=== PATIENT | female | born 1940 | race Caucasian/White ===

== ENCOUNTER → 2020-05-15 13:19 | Outpatient (BNVA) | payer MEDICARE, OTHER, SELFPAY | PROVIDERS: PCP Internal Medicine; Referring Provider Internal Medicine; Visit Provider Hospitalist | DX: J45.909 Unspecified asthma, uncomplicated (principal); R49.0 Dysphonia; Z79.899 Other long term (current) drug therapy | CPT/HCPCS: 99212 ==

== ENCOUNTER → 2020-09-11 08:56 | Outpatient (BNVA) | payer MEDICARE, OTHER, SELFPAY | PROVIDERS: PCP Internal Medicine; Visit Provider Hospitalist | DX: J45.40 Moderate persistent asthma, uncomplicated (principal); J30.9 Allergic rhinitis, unspecified; R49.0 Dysphonia; Z79.899 Other long term (current) drug therapy | CPT/HCPCS: 99212 ==

== ENCOUNTER → 2021-03-17 13:19 | Outpatient (BNVA) | payer MEDICARE, OTHER, SELFPAY | PROVIDERS: PCP Internal Medicine; Visit Provider Hospitalist | DX: J30.9 Allergic rhinitis, unspecified (principal); J45.40 Moderate persistent asthma, uncomplicated; R91.8 Other nonspecific abnormal finding of lung field; R49.0 Dysphonia | CPT/HCPCS: 99212 ==

== ENCOUNTER → 2021-10-02 13:31 | Outpatient (BNVA) | payer MEDICARE, OTHER, SELFPAY | PROVIDERS: PCP Internal Medicine; Visit Provider Hospitalist | DX: J30.9 Allergic rhinitis, unspecified (principal); J45.40 Moderate persistent asthma, uncomplicated; R91.8 Other nonspecific abnormal finding of lung field | CPT/HCPCS: 99212 ==

== ENCOUNTER 2022-04-26 14:05 | Outpatient (REF) | payer SELFPAY ==
--- NOTE | 2022-04-26 16:34 | MHC.AU.HAS ---
Hearing Aid Evaluation Date of Visit: 04/26/22 Historical Information:Description of Hearing: Moderate sensorineural hearing loss in the right ear; Moderate to moderately-severe sensorineural hearing loss in the left ear Current personal amplification information: Sonic ET60 MNR RITLandy (Right SN: [id number]; Left SN: [id number]) Summary: Current hearing aids using 85 dB receivers and open domes. Purchased in 2018. Melody reported significant difficulty hearing with current hearing aids especially in adverse listening environments. She noted particular difficulty at sikhism as well as at other social events. Discussed realistic expectations of hearing aids considering hearing loss and word discrimination ability. Discussed possibility of reprogramming current hearing aids to updated hearing test at the clinic where they were purchased; however, Melody opted to pursue new hearing aids with upgraded technology. Hearing Aid Prescription: Based on the individual?s shared listening needs, communication environments, dexterity, desire for connectivity, and personal preferences, the following prescription for amplification has been made: Right ear: Metal Can Inspector: [employer] Model: Audeo L90-RT Battery Size: Rechargeable Color: P6 - Silver Page Insurance Investigator: 2M Type of Dome: Small power dome Left ear: Left ear prescription to be same as Right Hearing Aid above: Metal Can Inspector: Phonak Model: Audeo L90-RT Battery Size: Rechargeable Color: P6 - Silver Page Insurance Investigator: 2M Type of Dome: Small power dome Plan of Care: Patient wishes to purchase hearing aids as prescribed Action Taken/Action Needed: Hearing Instrument Fitting to be scheduled when materials arrive Primary Diagnosis: H90.3 Bilateral Sensorineural Hearing Loss Signature: Provider: Jonathan Medellin, [facility]
== END 2022-04-26 14:06 | disposition home or self-care (01) ==
LOC: HO.HAP 14:05
PROVIDERS: Visit Provider Internal Medicine
DX: Z46.1 Encounter for fitting and adjustment of hearing aid (principal); H90.3 Sensorineural hearing loss, bilateral
CPT/HCPCS: 92590

== ENCOUNTER 2022-05-26 14:26 | Outpatient (REF) | payer SELFPAY ==
--- NOTE | 2022-05-26 16:01 | MHC.AU.HFA ---
Hearing Instrument Fitting- Adult- Binaural Date of Visit: 05/26/22 Hearing Instruments Dispensed: Right Ear: Vivek Arevaloeo L90-RT SN: [id number] Color: Silver Page Repair Warranty: 07/26/2025 Loss and Damage Warranty: 07/26/2025 Service Plan: OPTED OUT Battery Size: Rechargeable Hunting Sales Leader: 2M Type of Mold: Small power dome Type of Wax Guard: CeruShield Left Ear: Vivek Franko L90-RT SN: [id number] Color: Silver Page Repair Warranty: 07/26/2025 Loss and Damage Warranty: 07/26/2025 Service Plan: OPTED OUT Battery Size: Rechargeable Hunting Sales Leader: 2M Type of Mold: Small power dome Type of Wax Guard: CeruShield Summary of Fitting: Performed feedback franchise development manager and real-ear measurements. Per Melody, settings were too loud and not normal at real ear settings. Reprogrammed to initial fit settings and Melody reported improvement in sound quality. Discussed benefit of real ear settings and time to acclimate to new hearing aids; however, Melody preferred the initial fit settings for now. Reviewed care, use, and rechargeability including changing dome and wax guard, manually turning on/off, and volume control use. Melody would like to pair her hearing aids to her cell phone; however, she did not bring her cellphone to this appointment. Recommendations: A hearing instrument follow-up was scheduled. Need to pair hearing aids to cell phone at follow up appointment. Diagnosis Code(s): Primary Diagnosis: H90.3 Bilateral Sensorineural Hearing Loss Signature: Provider: Jonathan Medellin, [facility]
== END 2022-05-26 14:27 | disposition home or self-care (01) ==
LOC: HO.HAP 14:26
PROVIDERS: Visit Provider Internal Medicine
DX: Z46.1 Encounter for fitting and adjustment of hearing aid (principal); H90.3 Sensorineural hearing loss, bilateral
CPT/HCPCS: V5261; V5299

== ENCOUNTER 2022-06-04 13:52 | Outpatient (REF) | payer MEDICARE, OTHER, SELFPAY ==
--- NOTE | 2022-06-04 17:45 | PFT_ITS ---
Forced vital capacity 82%, FEV1 of 81%. FEV1/FVC ratio is 73. [id number] of 73% and MVV 69%. Post bronchodilator therapy, there is no significant change. Total lung capacity 77% and residual volume 77%. Diffusion capacity is 56%. CONCLUSION: There is evidence of mild restrictive pulmonary disorder. No obstructive airway disorder. No response to bronchodilator therapy. MD RONAL Dobbins/MODL / [phone]
== END 2022-06-04 13:53 | disposition home or self-care (01) ==
LOC: HO.RESP 13:52
PROVIDERS: PCP Internal Medicine; Visit Provider Hospitalist
DX: J45.40 Moderate persistent asthma, uncomplicated (principal); J44.9 Chronic obstructive pulmonary disease, unspecified
CPT/HCPCS: 94060; 94727; 94729; 99212

== ENCOUNTER 2022-06-07 10:11 | Outpatient (REF) | payer SELFPAY ==
--- NOTE | 2022-06-07 10:58 | MHC.AU.HA3 ---
Hearing Instrument Follow-Up- Binaural Date of Visit: 06/07/22 Right Ear: Jarrett, Model, Color, Serial Number: Vivek Rutherford L90-RT SN: [id number] Color: Silver Page Senior Reservations Agent Repair Warranty: 07/26/2025 Senior Reservations Agent Loss and Damage Warranty: 07/26/2025 [facility] rService Plan: OPTED OUT Battery Size: Rechargeable Crossing Gateman/Slim Tube: 2M with retention tail Earmold/Dome/CShell/SlimTip:Small power dome Type of Wax Guard: CeruShield Dispensed By: [facility] Date of Fittin05/26/2022 Left Ear: Jarrett, Model, Color, Serial Number: Vivek Rutherford L90-RT SN: [id number] Color: Silver Page Senior Reservations Agent Repair Warranty: 07/26/2025 Senior Reservations Agent Loss and Damage Warranty: 07/26/2025 [facility] Service Plan: OPTED OUT Battery Size: Rechargeable Crossing Gateman/Slim Tube: 2M with retention tail Earmold/Dome/CShell/SlimTip: Small power dome Type of Wax Guard: CeruShield Dispensed By: [facility] Date of Fittin05/26/2022 Follow-Up Summary: Melody reported overall she is doing well with the hearing aids. She noted particular improvement hearing the television as well as in the clarity of speech compared to her old hearing aids. She reported some difficulty when speakers were on her left side - discussed difference in word discrimination scores - as well as in the car - adjusted noise management settings in the [id number] program. She also reported that some times the overall volume is too loud/hollow. She reportedly turned down the volume often. Adjusted occlusion compensation to medium - noted improvement in office. Also discussed trade off between speech intelligibility and comfort and continued time needed to acclimate to new settings and acoustic coupling (previous hearing aids had open domes). Paired to phone and confirmed successful connection with phone call in office. Recommendations: An additional follow-up was scheduled to monitor progress. Please contact our clinic with any questions or concerns. Diagnosis Code(s): Primary Diagnosis: H90.3 Bilateral Sensorineural Hearing Loss Signature: Provider: Jonathan Medellin, [facility]
== END 2022-06-07 10:12 | disposition home or self-care (01) ==
LOC: HO.HAP 10:11
PROVIDERS: Visit Provider Internal Medicine
DX: Z13.89 Encounter for screening for other disorder (principal)

== ENCOUNTER 2022-06-22 13:24 | Outpatient (REF) | payer SELFPAY ==
--- NOTE | 2022-06-22 14:26 | MHC.AU.HA3 ---
Hearing Instrument Follow-Up- Binaural Date of Visit: 06/22/22 Right Ear: Jarrett, Model, Color, Serial Number: Vivek Rutherford L90-RT SN: [id number] Color: Silver Page Highway Design Engineer Repair Warranty: 07/26/2025 Highway Design Engineer Loss and Damage Warranty: 07/26/2025 [facility] Service Plan: OPTED OUT Battery Size: Rechargeable Financial Aid Coordinator/Slim Tube: 2M with retention tail Earmold/Dome/CShell/SlimTip:Small power dome Type of Wax Guard: CeruShield Dispensed By: [facility] Date of Fittin05/26/2022 Left Ear: Jarrett, Model, Color, Serial Number: Vivek Rutherford L90-RT SN: [id number] Color: Silver Page Highway Design Engineer Repair Warranty: 07/26/2025 Highway Design Engineer Loss and Damage Warranty: 07/26/2025 [facility] Service Plan: OPTED OUT Battery Size: Rechargeable Financial Aid Coordinator/Slim Tube: 2M with retention tail Earmold/Dome/CShell/SlimTip: Small power dome Type of Wax Guard: CeruShield Dispensed By: [facility] Date of Fittin05/26/2022 Follow-Up Summary: Melody is very satisfied with her new hearing aids reporting that they are 90-100% better than her old hearing aids. No programming adjustments made today. Provided paper copy of instruction manual. Melody reported still some difficulty on the telephone but overall great improvement. Advised using volume control on cellphone during phone calls. Also completed [employer] certification form at Melody's request for her to apply for R2integratedline phone. Discussed end of trial period - Melody confirmed purchase of hearing aids. She knows that future visits will incur lan-exo-zleavrn charge as she opted out of service agreement. Recommendations: Updated audiological evaluation and hearing aid maintenance in January 2023 - Melody will contact her primary care physician for an order for the test at that time. Please contact the clinic sooner if any questions or concerns arise. Diagnosis Code(s): Primary Diagnosis: H90.3 Bilateral Sensorineural Hearing Loss Signature: Provider: Jonathan Medellin, [facility]
== END 2022-06-22 13:25 | disposition home or self-care (01) ==
LOC: HO.HAP 13:24
PROVIDERS: Visit Provider Internal Medicine
DX: Z13.89 Encounter for screening for other disorder (principal)

== ENCOUNTER 2022-07-14 11:43 | Outpatient (REF) | payer SELFPAY ==
--- NOTE | 2022-07-14 15:36 | MHC.AU.HA3 ---
Hearing Instrument Follow-Up- Binaural Date of Visit: 07/14/22 Right Ear: Jarrett, Model, Color, Serial Number: Vivek Rutherford L90-RT SN: [id number] Color: Silver Page Financial Institution Branch Manager Repair Warranty: 07/26/2025 Financial Institution Branch Manager Loss and Damage Warranty: 07/26/2025 [facility] Service Plan: OPTED OUT Battery Size: Rechargeable Classification Inspector/Slim Tube: 2M with retention tail Earmold/Dome/CShell/SlimTip:Small power dome Type of Wax Guard: CeruShield Dispensed By: [facility] Date of Fittin05/26/2022 Left Ear: Jarrett, Model, Color, Serial Number: Vivek Rutherford L90-RT SN: [id number] Color: Silver Page Financial Institution Branch Manager Repair Warranty: 07/26/2025 Financial Institution Branch Manager Loss and Damage Warranty: 07/26/2025 [facility] Service Plan: OPTED OUT Battery Size: Rechargeable Classification Inspector/Slim Tube: 2M with retention tail Earmold/Dome/CShell/SlimTip: Small power dome Type of Wax Guard: CeruShield Dispensed By: [facility] Date of Fittin05/26/2022 Follow-Up Summary: Melody reported that the right hearing aid is not charging. The LED light is continuously red no matter how long the hearing aid stays in the submarine element coordinator and it will not turn on. Confirmed in office. No difference in left charging slot or with different submarine element coordinator. Programmed loaner. Sent right hearing aid to [facility] to be repaired. Recommendations: Patient will be contacted when materials have arrived. Recommendations (Other): Will need appointment when right hearing aid arrives to reconnect to left hearing aid and return loaner. Diagnosis Code(s): Primary Diagnosis: H90.3 Bilateral Sensorineural Hearing Loss Signature: Provider: Jonathan Medellin, [facility]
== END 2022-07-14 11:44 | disposition home or self-care (01) ==
LOC: HO.HAP 11:43
PROVIDERS: Visit Provider Internal Medicine
DX: Z13.89 Encounter for screening for other disorder (principal)

== ENCOUNTER 2022-07-27 13:07 | Outpatient (REF) | payer SELFPAY | END 2022-07-27 13:08 | disposition home or self-care (01) | LOC: HO.HAP 13:07 | PROVIDERS: Visit Provider Internal Medicine | DX: Z13.89 Encounter for screening for other disorder (principal) ==

== ENCOUNTER 2023-02-03 13:02 | Outpatient (AMB) | payer MEDICARE, OTHER, SELFPAY ==
[2023-02-03 13:09] VITALS: PULSE 88; O2SAT 96; BMI 29.2
--- NOTE | 2023-02-03 13:09 | A.OFFVIS_ITS ---
Intake Vital Signs 02/03/23 13:09 Height 5 ft 3 in Weight 165 lb BMI 29.2 Pulse 88 Pulse Source Pulse Oximeter Pulse Oximetry (%) 96 Oxygen Delivery Method Room Air Intake Visit Reasons: copd Produce Specialist Required: No Allergies montelukast [Singulair] Allergy (Severe, Verified 02/03/23 13:10) Rash and Red Hands Codeine Allergy (Severe, Uncoded 02/03/23 13:10) Stomach Pain Oxycodone Allergy (Severe, Uncoded 02/03/23 13:10) Stomach Upset HPI HPI Comments History of Present Illness Details The patient is a 82-year-old woman with a known history of breast cancer in addition to pulmonary nodules and lymphadenopathy and ongoing shortness of breath. She does have a CT scan of the chest scheduled of [facility] by her oncologist next week. On previous examinations she was noted to have some bronchospasms. She was initially placed on Trelegy and then Advair, but no significant improving her respiratory status. Then she was placed on Singulair but that gave her reaction. She was then switched over Zafirlukast tolerating that well. She does have some persistent dyspnea on exertion. She also feels some chest congestion coughing at times. She did have a CT scan of the chest done in March 2019 at [facility]. Her pulmonary nodules are stable. She does have a large hiatal hernia. It appears to be almost pressing on her heart. She is getting nausea symptoms. She does try to follow-up reflux diet to some degree. We talked about making sure she sleeps elevated. The patient at this point based on the significant symptoms and her large hiatal hernia in the fact that she has some crackles on examination she this time of the possibility of microaspiration and aspiration pneumonitis the patient should see a specialist for this. I will make a referral to [facility]. In the meantime the patient is without any other complaints. To also to note on the CT scan she had a 4 cm right thyroid lobe. She has had this evaluated the past. She needs to follow up with her primary care doctor or solidworks mechanical designer regarding this. 05/15/2020 the patient is here for pulmonary follow-up visit. Overall she is doing a little better. She states that she is tolerating the Symbicort. She is using 2 puffs in the morning. She is not using a spacer. She still complaining of some hoarseness. I had provide her with a spacer but she had not been using it. I did review educate her and also had our nurse educator about the use of a spacer to make sure she uses it correctly. Mom we also talked about potentially putting her in the lower dose of Symbicort if she still has hoarseness. In addition to that we talked about the reflux diet which she should be following based on the possibility of underlying pharyngeal laryngeal penetration and microaspiration. The patient will have an evaluation with ENT as well to further address the hoarseness, 09/11/2020 the patient is here for pulmonary follow-up visit. Overall the patient is doing better. The hoarseness is overall better. She is trying to use a spacer with Symbicort and also rinse and gargle after worse. She was evaluated by ENT and they did recommend speech pathology. Again her hoarseness has gotten a little better in the last few weeks. In addition to that she did have a CT scan of the chest back in May 2020 demonstrating stable pulmonary nodules. Her mediastinal lymph else are stable in size. She has slight increase in the perivascular lymph nodes in size. She is going to continue being monitor closely by her oncologist. In the office we did provide her with a peak flow. She did use the peak flow and she was able to get between 250-300 mL for her maximum. At this point she is going to decrease the Symbicort to 1 puff daily with a spacer. She is going to monitor her peak flow. If her peak flow drops then she is going to increase the Symbicort to 1 puff twice a day. She also has a rescue inhaler that she can use as needed. Will follow up in 6 months or sooner if she develops any concerning symptoms. 03/17/2021 the patient is here for a pulmonary follow-up visit. The patient overall is doing about the same. She continues uses Symbicort. Still having issues with hoarseness and also with cough. I did recommend she switch the Symbicort 2 with different inhaler, [place] that will decrease the adverse effects. Patient is willing to switch over since she is not feeling any better. Also it will help with hoarseness. She had been using the peak flow but stopped because he was not making any difference after using the Symbicort. Her peak flow still around 250-300 mL. She is following closely with her oncologist. Her last CT scan of the chest from May 2020 demonstrated stable pulmonary nodules but did have some increased perivascular lymph nodes primarily the abdomen. Now she will be undergoing an MRI. 10/02/2021 the patient is here for a pulmonary follow-up visit. Overall her breathing appears to be stable. She initially had issues with hoarseness. Now she is tolerating Breo. Denies any hoarseness or cough at this time. She did have a CT scan of the chest at [facility] which was personally by me. It appears that she has interval worsening of the size of the nodular densities. This is likely worsening metastatic breast cancer. The patient is following closely with Oncology. Recently she was taken off her hormonal therapy due to renal issues. She was recently placed a new 1. Therefore, she does have a repeat CT scan coming to readdress the pulmonary nodules with new hormonal treatment. Otherwise patient is without any other complaints. 06/04/2022 the patient is here for a pulmonary follow-up visit. The patient has been feeling well from a respiratory status. She continues to tolerate the Breo inhaler. The patient did have a CT scan of the chest and abdomen demonstrating interval improvement other ground-glass opacities suggesting the improvement of the pneumonitis. This is also clinically relevant because her respiratory status has improved as well. The patient also underwent pulmonary function studies demonstrating just a mild restrictive process. Otherwise normal PFTs. Her CT scan of the abdomen did demonstrate some progression of the bony Mets. She will be following up with her oncologist soon. 02/03/2023 the patient is here for pulmonary follow-up visit. Overall she is doing about the same. Still complaining of dyspnea on exertion mqbf-ue-awdbflto severity. Typically worse when going up a flight of stairs. She has been on the Breo. She is not sure if it has been working for her. She did follow-up with her oncologist regarding the worsening CT scan of the chest. She is scheduled to have a repeat CT scan next month. She continues on the hormonal therapy. Indeed she is aware she has metastatic breast cancer. The patient did go for brief walking oximetry. She was initially desaturating down to about 93% with activity and she was dyspneic. We did work on deep breathing exercises such as pursed lip breathing and the patient's pulse ox did improve to 96%. We talked about the importance of pulmonary rehabilitation. I gave her information about online program and also offer her in person pulmonary rehab. She lives in will bring him so she states that [facility] will work best. She will call back and let us know if she would rather do it in person. Otherwise will follow-up in 6-8 months. The patient has any issues prior to that she will call for earlier assessment. [facility] Medical History (Updated 06/06/22 @ 22:43 by Rohan Sykes MD) Asthma Chronic allergic rhinitis Hiatal hernia History of breast cancer Hoarseness Pulmonary nodules Social History (Updated 03/17/21 @ 13:33 by LISBETH Hathaway) Patient Tobacco Use Status: Never used Tobacco Review of Systems Const Denies night sweats ENT Denies change in voice, Denies hoarseness, Denies lip swelling, Denies mouth pain, Reports nasal congestion, Reports nasal discharge and Denies tongue swe lling Card Denies chest pain and Reports dyspnea on exertion Resp Denies cough and Reports dyspnea on exertion GI Denies abdominal pain Musc Denies no additional complaints Neuro Denies Neuro-related abnormal movements Psych Denies no additional complaints Elmo/Lymph Denies easy bleeding and Denies lymphadenopathy Aller/Immun Denies lip swelling and Denies tongue swelling Physical Exam Vital Signs: Last Vital Signs Pulse 88 02/03/23 13:09 Pulse Ox 96 02/03/23 13:09 Oxygen Delivery Method Room Air 02/03/23 13:09 BMI result Body Mass Index 29.2 Const General: alert Neck Neck: Yes normal visual inspection, Yes full ROM and Yes no lymphadenopathy Chest Chest palpation & inspection: normal inspection of the chest Resp Auscultation: diminished lung sounds Cardio Rate: regular rate Rhythm: regular rhythm Heart sounds: S1 normal heart sound present and S2 normal heart sound present GI Palpation (GI): Soft to palpation and nontender Auscultation: normal bowel sounds General: Yes no CVA tenderness Back/Spine/Pelvis Back: no CVA tenderness Skin General skin exam: rashes and/or lesions noted Assessment & Plan Assessment & Plan (1) Asthma: Code(s): J45.909 - Unspecified asthma, uncomplicated Qualifiers: Asthma complication type: uncomplicated Asthma persistence: persistent Asthma severity: moderate Qualified Code(s): J45.40 - Moderate persistent asthma, uncomplicated (2) Chronic allergic rhinitis: Code(s): J30.9 - Allergic rhinitis, unspecified (3) Pulmonary nodules: Comment: stable Code(s): R91.8 - Other nonspecific abnormal finding of lung field Plan continue Breo daily Continue Allergy therapy Will f/u with oncology F/U CT chest next month per Oncology start online pulmonary rehab, consider in person pulmonary rehab F/U 6-8 months Coding Level of Care Code Est Pt Level 4 (36802) Diagnoses Asthma J45.40 Asthma complication type: uncomplicated Asthma persistence: persistent Asthma severity: moderate Chronic allergic rhinitis J30.9 Pulmonary nodules R91.8 Time Spent (min) 20
== END 2023-02-03 13:37 | disposition home or self-care (01) ==
PROVIDERS: PCP Internal Medicine; Visit Provider Hospitalist
DX: J45.40 Moderate persistent asthma, uncomplicated (principal); J30.9 Allergic rhinitis, unspecified; R91.8 Other nonspecific abnormal finding of lung field
CPT/HCPCS: 99214

== ENCOUNTER → 2023-02-03 13:02 | Outpatient (BNVA) | payer MEDICARE, OTHER, SELFPAY | PROVIDERS: PCP Internal Medicine; Visit Provider Hospitalist | DX: J45.40 Moderate persistent asthma, uncomplicated (principal); J30.9 Allergic rhinitis, unspecified; R91.8 Other nonspecific abnormal finding of lung field; Z79.899 Other long term (current) drug therapy | CPT/HCPCS: 99212 ==

== ENCOUNTER 2023-09-15 13:44 | Outpatient (AMB) | payer MEDICARE, OTHER, SELFPAY ==
--- NOTE | 2023-09-15 13:49 | MHC.OFFVIS ---
Intake Vital Signs 09/15/23 13:51 Height 5 ft 3 in Weight 165 lb BMI 29.2 Pulse 90 Pulse Source Pulse Oximeter Pulse Oximetry (%) 95 Oxygen Delivery Method Room Air Intake Visit Reasons: COPD Assistant Toddler Teacher Required: No Allergies montelukast [Singulair] Allergy (Severe, Verified 09/15/23 13:52) Rash and Red Hands Codeine Allergy (Severe, Uncoded 09/15/23 13:52) Stomach Pain Oxycodone Allergy (Severe, Uncoded 09/15/23 13:52) Stomach Upset HPI HPI Comments History of Present Illness Details The patient is a 83-year-old woman with a known history of breast cancer in addition to pulmonary nodules and lymphadenopathy and ongoing shortness of breath. She does have a CT scan of the chest scheduled of [facility] by her oncologist next week. On previous examinations she was noted to have some bronchospasms. She was initially placed on Trelegy and then Advair, but no significant improving her respiratory status. Then she was placed on Singulair but that gave her reaction. She was then switched over Zafirlukast tolerating that well. She does have some persistent dyspnea on exertion. She also feels some chest congestion coughing at times. She did have a CT scan of the chest done in March 2019 at [facility]. Her pulmonary nodules are stable. She does have a large hiatal hernia. It appears to be almost pressing on her heart. She is getting nausea symptoms. She does try to follow-up reflux diet to some degree. We talked about making sure she sleeps elevated. The patient at this point based on the significant symptoms and her large hiatal hernia in the fact that she has some crackles on examination she this time of the possibility of microaspiration and aspiration pneumonitis the patient should see a specialist for this. I will make a referral to [facility] GI. In the meantime the patient is without any other complaints. To also to note on the CT scan she had a 4 cm right thyroid lobe. She has had this evaluated the past. She needs to follow up with her primary care doctor or studio data analyst regarding this. 05/15/2020 the patient is here for pulmonary follow-up visit. Overall she is doing a little better. She states that she is tolerating the Symbicort. She is using 2 puffs in the morning. She is not using a spacer. She still complaining of some hoarseness. I had provide her with a spacer but she had not been using it. I did review educate her and also had our nurse educator about the use of a spacer to make sure she uses it correctly. Mom we also talked about potentially putting her in the lower dose of Symbicort if she still has hoarseness. In addition to that we talked about the reflux diet which she should be following based on the possibility of underlying pharyngeal laryngeal penetration and microaspiration. The patient will have an evaluation with ENT as well to further address the hoarseness, 09/11/2020 the patient is here for pulmonary follow-up visit. Overall the patient is doing better. The hoarseness is overall better. She is trying to use a spacer with Symbicort and also rinse and gargle after worse. She was evaluated by ENT and they did recommend speech pathology. Again her hoarseness has gotten a little better in the last few weeks. In addition to that she did have a CT scan of the chest back in May 2020 demonstrating stable pulmonary nodules. Her mediastinal lymph else are stable in size. She has slight increase in the perivascular lymph nodes in size. She is going to continue being monitor closely by her oncologist. In the office we did provide her with a peak flow. She did use the peak flow and she was able to get between 250-300 mL for her maximum. At this point she is going to decrease the Symbicort to 1 puff daily with a spacer. She is going to monitor her peak flow. If her peak flow drops then she is going to increase the Symbicort to 1 puff twice a day. She also has a rescue inhaler that she can use as needed. Will follow up in 6 months or sooner if she develops any concerning symptoms. 03/17/2021 the patient is here for a pulmonary follow-up visit. The patient overall is doing about the same. She continues uses Symbicort. Still having issues with hoarseness and also with cough. I did recommend she switch the Symbicort 2 with different inhaler, Alvesco that will decrease the adverse effects. Patient is willing to switch over since she is not feeling any better. Also it will help with hoarseness. She had been using the peak flow but stopped because he was not making any difference after using the Symbicort. Her peak flow still around 250-300 mL. She is following closely with her oncologist. Her last CT scan of the chest from May 2020 demonstrated stable pulmonary nodules but did have some increased perivascular lymph nodes primarily the abdomen. Now she will be undergoing an MRI. 10/02/2021 the patient is here for a pulmonary follow-up visit. Overall her breathing appears to be stable. She initially had issues with hoarseness. Now she is tolerating Breo. Denies any hoarseness or cough at this time. She did have a CT scan of the chest at [facility] which was personally by me. It appears that she has interval worsening of the size of the nodular densities. This is likely worsening metastatic breast cancer. The patient is following closely with Oncology. Recently she was taken off her hormonal therapy due to renal issues. She was recently placed a new 1. Therefore, she does have a repeat CT scan coming to readdress the pulmonary nodules with new hormonal treatment. Otherwise patient is without any other complaints. 06/04/2022 the patient is here for a pulmonary follow-up visit. The patient has been feeling well from a respiratory status. She continues to tolerate the Breo inhaler. The patient did have a CT scan of the chest and abdomen demonstrating interval improvement other ground-glass opacities suggesting the improvement of the pneumonitis. This is also clinically relevant because her respiratory status has improved as well. The patient also underwent pulmonary function studies demonstrating just a mild restrictive process. Otherwise normal PFTs. Her CT scan of the abdomen did demonstrate some progression of the bony Mets. She will be following up with her oncologist soon. 02/03/2023 the patient is here for pulmonary follow-up visit. Overall she is doing about the same. Still complaining of dyspnea on exertion [id number] severity. Typically worse when going up a flight of stairs. She has been on the Breo. She is not sure if it has been working for her. She did follow-up with her oncologist regarding the worsening CT scan of the chest. She is scheduled to have a repeat CT scan next month. She continues on the hormonal therapy. Indeed she is aware she has metastatic breast cancer. The patient did go for brief walking oximetry. She was initially desaturating down to about 93% with activity and she was dyspneic. We did work on deep breathing exercises such as pursed lip breathing and the patient's pulse ox did improve to 96%. We talked about the importance of pulmonary rehabilitation. I gave her information about online program and also offer her in person pulmonary rehab. She lives in will bring him so she states that [facility] will work best. She will call back and let us know if she would rather do it in person. Otherwise will follow-up in 6-8 months. The patient has any issues prior to that she will call for earlier assessment. 09/15/2023 the patient is here for pulmonary follow-up visit. She has been following up closely with Oncology. 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 She did have a biopsy-proven lesion. In the meantime she does have some chest tightness and wheezing. [id number] severity. The Breo has been partially helpful. She does not use her rescue inhaler. Although she has 1 available. Will go ahead and maximize her respiratory therapy switching over to Trelegy. [facility] Medical History (Updated 06/06/22 @ 22:43 by Rohan Sykes MD) Hiatal hernia History of breast cancer Pulmonary nodules Chronic allergic rhinitis Hoarseness Asthma Social History (Updated 03/17/21 @ 13:33 by LISBETH Hathaway) Patient Tobacco Use Status: Never used Tobacco Review of Systems Const Denies night sweats ENT Denies change in voice, Denies hoarseness, Denies lip swelling, Denies mouth pain, Reports nasal congestion, Reports nasal discharge and Denies tongue swelling Card Denies chest pain and Reports dyspnea on exertion Resp Denies cough and Reports dyspnea on exertion GI Denies abdominal pain Musc Denies no additional complaints Neuro Denies Neuro-related abnormal movements Psych Denies no additional complaints Elmo/Lymph Denies easy bleeding and Denies lymphadenopathy Aller/Immun Denies lip swelling and Denies tongue swelling Physical Exam Vital Signs: Last Vital Signs Pulse 90 09/15/23 13:51 Pulse Ox 95 09/15/23 13:51 Oxygen Delivery Method Room Air 09/15/23 13:51 BMI result Body Mass Index 29.2 Const General: alert Neck Neck: Yes normal visual inspection, Yes full ROM and Yes no lymphadenopathy Chest Chest palpation & inspection: normal inspection of the chest Resp Effort & Inspection: prolonged expiratory phase Auscultation: wheezes and diminished lung sounds Cardio Rate: regular rate Rhythm: regular rhythm Heart sounds: S1 normal heart sound present and S2 normal heart sound present GI Palpation (GI): Soft to palpation and nontender Auscultation: normal bowel sounds General: Yes no CVA tenderness Back/Spine/Pelvis Back: no CVA tenderness Skin General skin exam: rashes and/or lesions noted Assessment & Plan Assessment & Plan (1) Asthma: Code(s): J45.909 - Unspecified asthma, uncomplicated Qualifiers: Asthma complication type: uncomplicated Asthma persistence: persistent Asthma severity: moderate Qualified Code(s): J45.40 - Moderate persistent asthma, uncomplicated (2) Chronic allergic rhinitis: Code(s): J30.9 - Allergic rhinitis, unspecified (3) Pulmonary nodules: Comment: stable Code(s): R91.8 - Other nonspecific abnormal finding of lung field Plan stop Breo daily start Trelegy daily Continue Allergy therapy Will f/u with oncology and radiation oncology F/U 6 months Medications: New yodtqeiaasn-hoklqylzj-gqeifgfu 200-62.5-25 mcg (Trelegy Ellipta) 1 inh inhalation DAILY 30 days 60 ea 12RF Coding Level of Care Code Est Pt Level 4 (15192) Diagnoses Moderate persistent asthma without complication J45.40 Asthma complication type: uncomplicated Asthma persistence: persistent Asthma severity: moderate Chronic allergic rhinitis J30.9 Pulmonary nodules R91.8 Time Spent (min) 18
[2023-09-15 13:51] VITALS: PULSE 90; O2SAT 95; BMI 29.2
== END 2023-09-15 14:09 | disposition home or self-care (01) ==
PROVIDERS: PCP Internal Medicine; Visit Provider Hospitalist
DX: J45.40 Moderate persistent asthma, uncomplicated (principal); J30.9 Allergic rhinitis, unspecified; R91.8 Other nonspecific abnormal finding of lung field
CPT/HCPCS: 99214

== ENCOUNTER → 2023-09-15 13:44 | Outpatient (BNVA) | payer MEDICARE, OTHER, SELFPAY | PROVIDERS: PCP Internal Medicine; Visit Provider Hospitalist | DX: J44.9 Chronic obstructive pulmonary disease, unspecified (principal); J45.40 Moderate persistent asthma, uncomplicated; J30.9 Allergic rhinitis, unspecified; R91.8 Other nonspecific abnormal finding of lung field | CPT/HCPCS: 99212 ==

== ENCOUNTER 2024-03-13 13:02 | Outpatient (AMB) | payer MEDICARE, OTHER, SELFPAY ==
--- NOTE | 2024-03-13 13:14 | A.OFFVIS_ITS ---
Vital Signs 03/13/24 13:17 Height 5 ft 3 in Weight 153 lb 3.54 oz BMI 27.1 BP 118/60 Blood Pressure Location Rt brachial Position Sitting Pulse 90 Pulse Source Pulse Oximeter Pulse Oximetry (%) 93 Oxygen Delivery Method Room Air Intake Visit Reasons: COPD Judicial Assistant Required: No Allergies montelukast [Singulair] Allergy (Severe, Verified 03/13/24 13:19) Rash and Red Hands Codeine Allergy (Severe, Uncoded 03/13/24 13:19) Stomach Pain Oxycodone Allergy (Severe, Uncoded 03/13/24 13:19) Stomach Upset HPI Comments Details: The patient is a 83-year-old woman with a known history of breast cancer in addition to pulmonary nodules and lymphadenopathy and ongoing shortness of breath. She does have a CT scan of the chest scheduled of [facility] by her oncologist next week. On previous examinations she was noted to have some bronchospasms. She was initially placed on Trelegy and then Advair, but no significant improving her respiratory status. Then she was placed on Singulair but that gave her reaction. She was then switched over Zafirlukast tolerating that well. She does have some persistent dyspnea on exertion. She also feels some chest congestion coughing at times. She did have a CT scan of the chest done in March 2019 at [facility]. Her pulmonary nodules are stable. She does have a large hiatal hernia. It appears to be almost pressing on her heart. She is getting nausea symptoms. She does try to follow-up reflux diet to some degree. We talked about making sure she sleeps elevated. The patient at this point based on the significant symptoms and her large hiatal hernia in the fact that she has some crackles on examination she this time of the possibility of microaspiration and aspiration pneumonitis the patient should see a specialist for this. I will make a referral to [facility] GI. In the meantime the patient is without any other complaints. To also to note on the CT scan she had a 4 cm right thyroid lobe. She has had this evaluated the past. She needs to follow up with her primary care doctor or academy education director regarding this. 05/15/2020 the patient is here for pulmonary follow-up visit. Overall she is doing a little better. She states that she is tolerating the Symbicort. She is using 2 puffs in the morning. She is not using a spacer. She still complaining of some hoarseness. I had provide her with a spacer but she had not been using it. I did review educate her and also had our nurse educator about the use of a spacer to make sure she uses it correctly. Mom we also talked about potentially putting her in the lower dose of Symbicort if she still has hoarseness. In addition to that we talked about the reflux diet which she should be following based on the possibility of underlying pharyngeal laryngeal penetration and microaspiration. The patient will have an evaluation with ENT as well to further address the hoarseness, 09/11/2020 the patient is here for pulmonary follow-up visit. Overall the patient is doing better. The hoarseness is overall better. She is trying to use a spacer with Symbicort and also rinse and gargle after worse. She was evaluated by ENT and they did recommend speech pathology. Again her hoarseness has gotten a little better in the last few weeks. In addition to that she did have a CT scan of the chest back in May 2020 demonstrating stable pulmonary nodules. Her mediastinal lymph else are stable in size. She has slight increase in the perivascular lymph nodes in size. She is going to continue being monitor closely by her oncologist. In the office we did provide her with a peak flow. She did use the peak flow and she was able to get between 250-300 mL for her maximum. At this point she is going to decrease the Symbicort to 1 puff daily with a spacer. She is going to monitor her peak flow. If her peak flow drops then she is going to increase the Symbicort to 1 puff twice a day. She also has a rescue inhaler that she can use as needed. Will follow up in 6 months or sooner if she develops any concerning symptoms. 03/17/2021 the patient is here for a pulmonary follow-up visit. The patient overall is doing about the same. She continues uses Symbicort. Still having issues with hoarseness and also with cough. I did recommend she switch the Symbicort 2 with different inhaler, Alvesco that will decrease the adverse effects. Patient is willing to switch over since she is not feeling any better. Also it will help with hoarseness. She had been using the peak flow but stopped because he was not making any difference after using the Symbicort. Her peak flow still around 250-300 mL. She is following closely with her oncologist. Her last CT scan of the chest from May 2020 demonstrated stable pulmonary nodules but did have some increased perivascular lymph nodes primarily the abdomen. Now she will be undergoing an MRI. 10/02/2021 the patient is here for a pulmonary follow-up visit. Overall her breathing appears to be stable. She initially had issues with hoarseness. Now she is tolerating Breo. Denies any hoarseness or cough at this time. She did have a CT scan of the chest at [facility] which was personally by me. It appears that she has interval worsening of the size of the nodular densities. This is likely worsening metastatic breast cancer. The patient is following closely with Oncology. Recently she was taken off her hormonal therapy due to renal issues. She was recently placed a new 1. Therefore, she does have a repeat CT scan coming to readdress the pulmonary nodules with new hormonal treatment. Otherwise patient is without any other complaints. 06/04/2022 the patient is here for a pulmonary follow-up visit. The patient has been feeling well from a respiratory status. She continues to tolerate the Breo inhaler. The patient did have a CT scan of the chest and abdomen demonstrating interval improvement other ground-glass opacities suggesting the improvement of the pneumonitis. This is also clinically relevant because her respiratory status has improved as well. The patient also underwent pulmonary function studies demonstrating just a mild restrictive process. Otherwise normal PFTs. Her CT scan of the abdomen did demonstrate some progression of the bony Mets. She will be following up with her oncologist soon. 02/03/2023 the patient is here for pulmonary follow-up visit. Overall she is doing about the same. Still complaining of dyspnea on exertion hayl-la-hgmqkaaj severity. Typically worse when going up a flight of stairs. She has been on the Breo. She is not sure if it has been working for her. She did follow-up with her oncologist regarding the worsening CT scan of the chest. She is scheduled to have a repeat CT scan next month. She continues on the hormonal therapy. Indeed she is aware she has metastatic breast cancer. The patient did go for brief walking oximetry. She was initially desaturating down to about 93% with activity and she was dyspneic. We did work on deep breathing exercises such as pursed lip breathing and the patient's pulse ox did improve to 96%. We talked about the importance of pulmonary rehabilitation. I gave her information about online program and also offer her in person pulmonary rehab. She lives in will bring him so she states that [facility] will work best. She will call back and let us know if she would rather do it in person. Otherwise will follow-up in 6-8 months. The patient has any issues prior to that she will call for earlier assessment. 09/15/2023 the patient is here for pulmonary follow-up visit. She has been following up closely with Oncology. 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 She did have a biopsy-proven lesion. In the meantime she does have some chest tightness and wheezing. [id number] severity. The Breo has been partially helpful. She does not use her rescue inhaler. Although she has 1 available. Will go ahead and maximize her respiratory therapy switching over to Trelegy. 03/13/2024 the patient is here for a pulmonary follow-up visit. The patient is doing well from a respiratory status. Unfortunately, seems like her breast cancer is spreading now to the liver and bone among other areas. The patient did have a CT scan of the chest at [facility] in 01/14/2024 which I personally reviewed. It appears most of the pulmonary nodules have been relatively stable. Some of the ground-glass opacities have improved. Although, there seems to be extension of the lymph node involvement of the malignancy in addition to the metastatic disease to the liver and the bones. She had to change her chemotherapy. She had difficulties tolerating it. But today actually she feels pretty good. She is going to follow-up with her oncologist to see if she is going to continue the therapy. She continues with respiratory therapy with good effect. She has not had any exacerbations. She has not had to use her rescue inhaler. No recent imaging to review this time. [facility] Medical History (Updated 06/06/22 @ 22:43 by Rohan Sykes MD) Hiatal hernia History of breast cancer Pulmonary nodules Chronic allergic rhinitis Hoarseness Asthma Social History (Updated 03/17/21 @ 13:33 by LISBETH Hathaway) Patient Tobacco Use Status: Never used Tobacco Review of Systems Const Denies night sweats ENT Denies change in voice, Denies hoarseness, Denies lip swelling, Denies mouth pain, Reports nasal congestion, Reports nasal discharge and Denies tongue swelling Card Denies chest pain and Reports dyspnea on exertion Resp Denies cough and Reports dyspnea on exertion GI Denies abdominal pain Musc Denies no additional complaints Neuro Denies Neuro-related abnormal movements Psych Denies no additional complaints Elmo/Lymph Denies easy bleeding and Denies lymphadenopathy Aller/Immun Denies lip swelling and Denies tongue swelling Physical Exam Vital Signs: Last Vital Signs Pulse 90 03/13/24 13:17 BP 118/60 03/13/24 13:17 Pulse Ox 93 03/13/24 13:17 Oxygen Delivery Method Room Air 03/13/24 13:17 BMI result Body Mass Index 27.1 Const General: alert Neck Neck: Yes normal visual inspection, Yes full ROM and Yes no lymphadenopathy Chest Chest palpation & inspection: normal inspection of the chest Resp Effort & Inspection: normal respiratory effort Auscultation: no wheezes and diminished lung sounds Cardio Rate: regular rate Rhythm: regular rhythm Heart sounds: S1 normal heart sound present and S2 normal heart sound present GI Palpation (GI): Soft to palpation and nontender Auscultation: normal bowel sounds General: Yes no CVA tenderness Back/Spine/Pelvis Back: no CVA tenderness Skin General skin exam: rashes and/or lesions noted Assessment & Plan Assessment & Plan (1) Asthma: Code(s): J45.909 - Unspecified asthma, uncomplicated Category: Medical Qualifiers: Asthma complication type: uncomplicated Asthma persistence: persistent Asthma severity: moderate Qualified Code(s): J45.40 - Moderate persistent asthma, uncomplicated (2) Chronic allergic rhinitis: Code(s): J30.9 - Allergic rhinitis, unspecified Category: Medical (3) Pulmonary nodules: Comment: stable Code(s): R91.8 - Other nonspecific abnormal finding of lung field Category: Medical Plan contibue Trelegy daily Continue Allergy therapy Will f/u with oncology and radiation oncology Will assess imaging studies from [facility] F/U 6 months Coding Level of Care Code Est Pt Level 4 (69115) Complex EM visit Add On G2211 Diagnoses Moderate persistent asthma without complication J45.40 Asthma complication type: uncomplicated Asthma persistence: persistent Asthma severity: moderate Chronic allergic rhinitis J30.9 Pulmonary nodules R91.8 Time Spent (min) 30
[2024-03-13 13:17] VITALS: BP 118/60; PULSE 90; O2SAT 93; BMI 27.1
== END 2024-03-13 13:32 | disposition home or self-care (01) ==
PROVIDERS: PCP Internal Medicine; Visit Provider Hospitalist
DX: J45.40 Moderate persistent asthma, uncomplicated (principal); J30.9 Allergic rhinitis, unspecified; R91.8 Other nonspecific abnormal finding of lung field
CPT/HCPCS: 99214; G2211

== ENCOUNTER → 2024-03-13 13:02 | Outpatient (BNVA) | payer MEDICARE, OTHER, SELFPAY | PROVIDERS: PCP Internal Medicine; Visit Provider Hospitalist | DX: J45.40 Moderate persistent asthma, uncomplicated (principal); J30.9 Allergic rhinitis, unspecified; R91.8 Other nonspecific abnormal finding of lung field | CPT/HCPCS: 99212 ==

== ENCOUNTER 2025-01-15 07:57 | Outpatient (REF) | payer SELFPAY ==
--- OUTSIDE RECORDS SUMMARY | 2025-01-15 08:00 | XMS_ITS | Clinical Summary ---
Author Organization [facility], Address [address] [place] [address] Phone Care Team Providers Care Dielectric Press Operator Name Role Phone Terry Rivera MD Primary Care Provider [phone] Allergies Active Allergy Reactions Criticality Noted Date Comments Aspirin 06/14/2024 Other Reaction(s): CANT TAKE BECAUSE OF ELIQUIS Codeine 09/12/2006 abdominal pain Levofloxacin 07/16/2021 Montelukast 10/08/2019 Oxycodone 03/07/2017 Medications albuterol HFA (PROVENTIL HFA;VENTOLIN HFA) 108 (90 Base) MCG/ACT inhaler omeprazole Take (inhalation) [id number] HFA aerosol inhaler No frequency recorded inhalation No set duration recorded No set duration amount recorded active 90 mcg/actuation 9 Active apixaban (ELIQUIS) 5 MG tablet Take 1 tablet by mouth 0 Active ascorbic acid (VITAMIN C) 1000 MG tablet Take 1,000 mg by mouth 1 (one) time each day Active atorvastatin (LIPITOR) 40 MG tablet Take 40 mg by mouth 0 Active Blood Glucose Calibration (OT ULTRA/FASTTK CNTRL SOLN) solution Testing to be done on each new bottle of strips 1 Active Blood Glucose Monitoring Suppl (ONE TOUCH ULTRA 2) w/Device kit To test blood sugar daily 6 Active cetirizine (ZyrTEC) 10 MG tablet Take 1 tablet by mouth 1 (one) time each day 1 Active cholecalciferol (VITAMIN D-3) 25 MCG (1000 UT) capsule Take 1 capsule by mouth Active glucose blood (OneTouch Ultra) test strip USE TO TEST 3 TIMES A DAY 1 Active Lancet Devices (ONE TOUCH DELICA LANCING DEV) misc Use to test blood sugars three times a day 7 Active Lancets (OneTouch Delica Plus [id number]) misc TEST DAILY 1 Active letrozole (FEMARA) 2.5 MG chemo tablet Take 2.5 mg by mouth 8 Active losartan (COZAAR) 100 MG tablet Take 1 tablet by mouth Active SITagliptin (JANUVIA) 50 MG tablet Take 50 mg by mouth 1 Active omeprazole (PriLOSEC) [address] capsule Take 20 mg by mouth 1 Active zafirlukast (ACCOLATE) 20 MG tablet Take 20 mg by mouth 9 Active Zoledronic Acid 4 MG reconstituted solution Infuse into a venous catheter 8 Active amLODIPine (NORVASC) 2.5 MG tablet 2 Active Active Problems Problem Noted Date Diagnosed Date Stage 3b chronic kidney disease 11/17/2023 Type 2 diabetes mellitus 01/08/2019 Hyperlipidemia 12/22/2005 Hypertension 10/07/2005 History of acute kidney injury Resolved Problems Problem Noted Date Diagnosed Date Resolved Date Gastroesophageal reflux disease 01/24/2020 11/06/2020 Overview (11/06/2020): EGD 01/13 Hiatal hernia 01/24/2019 11/06/2020 Urinary incontinence 06/03/2018 021 Lymphedema of left upper limb 02/15/2018 11/06/2020 Asthma 03/17/2017 11/06/2020 Overview (11/06/2020): Possible, mild, PFTs 03/13; Dr Sykes Diverticulitis of large intestine 04/15/2014 11/06/2020 Primary malignant neoplasm of breast 10/04/2012 11/06/2020 Overview (11/06/2020): BRCA negative; recurrent 02/11; [facility] Atrial fibrillation 04/07/2012 11/07/19 21 Overview (11/06/2020): S/p pacer Thyroid nodule 12/04/2006 11/06/2020 Overview (11/06/2020): FNA negative Encounters Date Type Department Care Team Description 12/21/2024 Orders Only [facility], [address] [place] [address] Terry Munoz MD Stage 3 chronic kidney disease, not otherwise specified (HCC) from Last 3 Months Immunizations Immunization Administration Dates Next Due H1N1 Inj Preservative Free 07/01/2009 Hep A, Unspecified 03/02/2006 Influenza Split High Dose Pr eservative Free IM 03/11/2021,03/26/2020,03/02/2019,03/02,04/28/2015 Influenza TIV (IM) 05/18/2013, 2,04/14/2011,03/20,03/26/2009,05/20/2008,04/05/2007 Influenza, Unspecified 04/10/2014 Pfizer SARS-COV-2 04/01/2021,08/21/2020,07/30/19 21 Pneumococcal Conjugate 13-Valent 12/01/2015 Pneumococcal Polysaccharide 05/17/2014, 7 Shingrix 01/14/2020,06/14/2018,03/02/2018 Td, Unspecified 10/22/2004 Tdap 03/11/2023,09/11/2012,10/22/2004 Zoster 12/17/2009 Family History Medical History Relation Comments Atrial fibrillation Father Breast cancer Father's Sister Other Mother hypertension Breast cancer Mother's Sister Relation Status Comments Father Father's Sister Mother Mother's Sister Social History Tobacco Use Types Packs/Day Years Used Date Smoking Tobacco: Never Smokeless Tobacco: Never Alcohol Use Standard Drinks/Week Comments Yes 0 (1 standard drink = 0.6 oz pur e alcohol) beer weekly Comments Unknown Sex and Gender Information Value Date Recorded Sex Assigned at Not on file Legal Sex Female 4:24 PM EDT Gender Identity Not on file Sexual Orientation Not on file Last Filed Vital Signs Vital Sign Reading Time Taken Comments Blood Pressure 107/68 06/28/2024 1:49 PM EST Pulse 111 06/28/2024 1:49 PM EST Temperature - - Respiratory Rate - - Oxygen Saturation - - Inhaled Oxygen Concentration - - Weight 75 kg (165 lb 6.4 oz) 11/07/2020 4:31 PM EDT Height - - Body Mass Index - - Plan of Treatment Upcoming Encounters Date Type Department Care Team (Late st Contact Info) Description 02/28/2025 1:30 PM EDT Office Visit [facility], [address] [place] [phone] Terry Munoz MD [address] [place] [phone] Health Maintenance Due Date Last Done Comments Diabetes: Ophthalmology Exam 10/16/2020 Diabetes: Pedal Pulse Checked 10/16/2020 Diabetes: Sensory Foot Exam 10/16/2020 Diabetes: Visual Foot Exam 10/16/2020 Diabetes: Hemoglobin A1C 09/22/202106/24/ 021, 06/23/2021, 04/01/2021, Additional history exists Influenza Vaccine (#1) 2025 , 03/26/2020, 03/02/2019, Additional history exists Pneumococcal Vaccine: 50+ Years Completed 12/01/2015, 05/17/2014, 06/13/2007 Hepatitis B Vaccine Aged Out No longe r eligible based on patient's age to complete this topic Insurance [facility] Member Subscriber Plan / Payer (Ef fective 2020-Present) Name:Melody Landa Relation to Subscriber:Self Name:Melody Landa Payer ID:Not on file Type:Not on file Address: [address] [phone] Medicare Care Teams Dielectric Press Operator Relationship Specialty Start Date End Date Terry Rivera MD [facility] [place] [address] PCP - General Internal Medicine 06/28/24
--- OUTSIDE RECORDS SUMMARY | 2025-01-15 08:00 | XMS_ITS | Clinical Summary ---
Author Organization [address] [place] [address] [place] [phone] Phone Care Team Providers Care Principal Java Software Engineer Name Role Phone Terry Rivera MD Primary Care Provider [phone] Allergies Active Allergy Reactions Criticality Noted Date Comments Codeine 03/30/2024 Oxycodone 03/30/2024 Montelukast 03/30/2024 Medications losartan (COZAAR) 25 mg tablet Take 1 tablet (25 mg total) by mouth 1 (one) time each day. Active glipiZIDE (GLUCOTROL XL) 2.5 mg 24 hr tablet Take 1 tablet (2.5 mg total) by mouth 1 (one) time each day. Do not crush, chew, or split. Active FULVESTRANT IM Inject into the muscle every 30 days. - Intramuscular Active cetirizine (ZyrTEC) 10 mg tablet Take 1 tablet (10 mg total) by mouth 1 (one) time each day. Active famotidine (PEPCID) 20 mg tablet Take by mouth 2 (two) times a day. Active apixaban (ELIQUIS) 5 mg tablet Take 1 tablet (5 mg total) by mouth 2 (two) times a day. Active fluticasone furoate-vilante roL (Breo Ellipta) 200-25 mcg/dose inhaler Inhale by mouth 1 (one) time each day. Active lancets (OneTouch Delica Plus Lancet) 30 gauge Inject 1 Device into the skin daily. - Intradermal Active glucose blood test strip Use to test blood sugars once a day. Active atorvastatin (LIPITOR) 40 mg tablet Take 1 tablet (40 mg total) by mouth 1 (one) time each day. Active amLODIPine (NORVASC) 5 mg tablet Take 1 tablet by mouth daily for 180 days. - Oral Active SITagliptin phosphate (JANUVIA) 50 mg tablet Take 1 tablet by mouth daily for 180 days. - Oral Active denosumab (XGEVA) 120 mg/1.7 mL (70 mg/mL) injection Inject 1.7 mL (120 mg total) under the skin 1 (one) time. Active esomeprazole (NexIUM) [address] capsule Take 1 capsule by mouth every morning (before breakfast). - Oral Active azelastine (OPTIVAR) 0.05 % ophthalmic solution PLACE 1 DROP INTO THE AFFECTED EYE 2 TIMES A DAY DIRECTED. Active ascorbic acid (VITAMIN C) 1,000 mg tablet Take 1 tablet (1,000 mg total) by mouth 1 (one) time each day. Active zafirlukast (ACCOLATE) 20 mg tablet Take 1 Tab by mouth 2 times daily for 360 days. - Oral Active Autolet lancing device Use to test blood sugars three times a day Active blood-glucose meter kit To test blood sugar daily Active cholecalciferol (VITAMIN D-3) 50 mcg (2,000 unit) tablet Take 1 Cap by mouth daily. - Oral Active psyllium seed, with sugar, (FIBER ORAL) Take 4 Tabs by mouth daily. - Oral Active multivitamin tablet Take by mouth four times a week. - Oral Active calcium carbonate/vitam in D3 (CALCIUM 600 + D,3, ORAL) Take by mouth 1 (one) time each day. Active magnesium oxide (MAG-OX) 400 mg magnesium tabletIndicatio ns:Atrial fibrillation, unspecified type (CMS/HCC V24, CMS/HCC V28) Take 1 tablet (400 mg total) by mouth 1 (one) time each day. 90 tablet 1 Active Active Problems Problem Noted Date Diagnosed Date Hypertension 03/30/2024 Hyperlipidemia 03/30/2024 Dizziness and giddiness 03/30/2024 Thyroid nodule 03/30/2024 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, left (CMS/HCC V24, CMS/HCC V28) 03/30/2024 Diverticulitis large intestine 03/30/2024 Pericarditis 03/30/2024 Sick sinus syndrome (CMS/HCC V24, [facility] V28) 1 Asthma 03/30/2024 CKD (chronic kidney disease) stage 3, GFR 30-59 ml/min ([facility] V24, [facility] V28) 03/30/2024 Diabetic renal disease ([facility] V24, [facility] V28 ) 03/30/2024 Lymphedema of left arm 03/30/2024 Breast cancer metastasized t o lung ([facility] V24, 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 V24, [facility] V28) 03/30/2024 Esophagitis 03/30/2024 (HFpEF) heart failure with p reserved ejection fraction ([facility] V24, [facility] V28) 03/30/2024 Obstructive sleep apnea hypopnea, mild Dry eye syndrome 03/30/2024 Age-related macular degeneration 03/30/2024 Cardiac chest pain 03/30/2024 Atrial fibrillation ([facility] V24, [facility] V28) 1 Type II or unspecified type diabetes mellitus with neurological manifestations, not stated as uncontrolled(250.60) ([facility] V24, [facility] V28) 03/30/2024 Encounters Date Type Department Care Team Description 10/29/2024 Telephone [facility] - [facility] [address] [facility] [address] [place] [address] Diana Arri[place], [place] [facility] 10/24/2024 Telephone [facility] - [address] [place] [address] Valdemar Benz MD from Last 3 Months Immunizations Name Administration Dates Next Due H1N1 Inj Preservative Free 07/01/2009 Influenza trivalent, 0.5mL ( Fluzone High-dose) 65yo and older 03/11/2021,03/26/2020,03/02/2019,03/02,04/28/2015 Influenza trivalent, with pr eservative (Fluzone; Afluria) 6mo and older 05/18/2013,03/21/2012,04/14/2011,03/20,03/26/2009,05/20/2008,04/05/2007 Influenza, Unspecified 04/10/2014 Pneumococcal conjugate 13 va lent (Prevnar 13, PCV13) 2mo and older 12/01/2015 Pneumococcal polysaccharide 23 valent (Pneumovax 23) 2yo and older 05/17/2014,06/13/2007 Td, Unspecified 10/22/2004 Tdap Tetanus diptheria acell ular pertussis (Boostrix; Adacel) 7yo and older 09/11/2012 Zoster Live 12/17/2009 Zoster recombinant (Shingrix ) 19yo and older 06/14/2018,03/02/2018 Surgical History Surgery Date Site/Laterality Comments CHOLECYSTECTOMY PROCEDURE: [place] LAPAROSCOPY SURG CHOLECYSTECTOMY OTHER SURGICAL HISTORY PROCEDURE: MASTECTOMY -BREAST PROSTHESIS; COMMENT: breast ca1 BREAST SURGERY PROCEDURE: [place] UNLISTED PROCEDURE BREAST COLONOSCOPY 06/10/2011 PROCEDURE: HISTORICAL COLONOSCOPY; COMMENT: tics and hemorrhoids; would not repat ESOPHAGOGASTRODUODENOSCOPY 03/25/2016 PROCEDURE: [place] ESOPHAGOGASTRODUODENOSCOPY TRANSORAL DIAGNOSTIC; COMMENT: blotchy, raised erythema of gastric body; JEANNE test neg;bxys neg for H. pylori and show lymphoid noduules, focal intest. metaplasia and chronic gastritis PACEMAKER IMPLANT 01/2017 PROCEDURE: HISTORICAL PACEMAKER OTHER SURGICAL HISTORY 02/2017 PROCEDURE: HISTORY OTHER; COMMENT: ablation procedure for A Flutter CATARACT EXTRACTION PROCEDURE: HISTORICAL CATARACT REMOVAL ANKLE SURGERY 08/05/2021 Right PROCEDURE: HISTORICAL ANKLE SURGERY; COMMENT: open repair ankle fracture OTHER SURGICAL HISTORY 01/11/2013 PROCEDURE: LYMPH NODE BIOPSY SPCMN PATHOLOGY EXAM PACEMAKER IMPLANT PROCEDURE: HISTORICAL PACEMAKER OTHER SURGICAL HISTORY PROCEDURE: [place] ANES CARDIAC ELECTROPHYSIOL STDY W/RF ABLATION OTHER SURGICAL HISTORY PROCEDURE: [place] CARDIOVERSION ELECTIVE ARRHYTHMIA EXTERNAL Medical History Medical History Date Comments Thyroid nodule DX:Thyroid nodul e Cataract 01/08/2019 DX:Cataract; COM MENT: Extraction w/ IOL Type 2 diabetes mellitus wit h cataract ([facility]/HCC V24, [facility] V28) 01/08/2019 DX:Type 2 diabetes mellitus with cataract (HCC) Type 2 diabetes mellitus wit h renal manifestations (CMS/[facility] V24, [facility] V28) 01/08/2019 DX:Type 2 diabetes mellitus with renal manifestations (HCC) Asthma 03/17/2017 DX:Asthma; COMME NT: Possible, mild, PFTs 03/13 Atrial fibrillation ([facility] V24, [facility] V28) 04/07/2012 DX:Atrial fibrillation (HCC) ; COMMENT: S/p pacer 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, left ([facility] V24, [facility] V28) 10/04/2012 DX:Breast cancer metastasize d to axillary lymph node, left (HCC); COMMENT: BRCA negative; recurrent 02/11 Breast cancer metastasized t o lung ([facility] V24, [facility] V28) 03/02/2018 DX:Breast cancer metastasiz ed to lung (HCC) CKD (chronic kidney disease) stage 3, GFR 30-59 ml/min ([facility] V24, [facility] V28) 10/29/2017 DX:CKD (chronic kidney disea se) stage 3, GFR 30-59 ml/min ([facility]) Diabetic renal disease ([facility]/ [facility] V24, [facility] V28) 10/29/2017 DX:Diabetic renal disease (H CC) Diverticulitis large intestine 04/15/2014 D X:Diverticulitis large intestine Dizziness and giddiness 12/22/2005 DX:Dizzi ness and giddiness; COMMENT: chronic for 20-30 years.meclizine prn helps.has seen ent for this 10/31 carotids No hemodynamically significant stenosis MRI 10/31 Multiple scattered foci of abnormal signal in the white matter. Differential includes ischemic, infectious, demyelinating and vasculitis etiologies. Clinical correlation is suggested. Hyperlipidemia 12/22/2005 DX:Hyperlipidemi a Lymphedema of left arm 02/15/2018 DX:Lymphe rodolfo of left arm Pericarditis 03/04/2017 DX:Pericarditis; COMMENT: Following pacemaker placement 02/10 Sick sinus syndrome ([facility] V24, [facility] V28) 03/04/2017 DX:Sick sinus syndrome (HCC) Type 2 diabetes mellitus wit h neurological manifestations, controlled ([facility] V24, [facility] V28) 05/20/2014 DX:Type 2 diabet es mellitus with neurological manifestations, controlled ([facility]) Urinary incontinence 06/03/2018 DX:Urinary incontinence Hypertension 10/07/2005 DX:Hypertension Ankle fracture DX:Ankle fractur e COPD (chronic obstructive pu lmonary disease) ([facility] V24, [facility] V28) DX:COPD (chronic o bstructive pulmonary disease) (HCC) Diabetes mellitus ([facility] V 24, [facility] V28) DX:Diabetes mellitus (HCC) GERD (gastroesophageal reflu x disease) DX:GERD (gastroesophageal re flux disease) Shoulder weakness DX:Shoulder we akness Anemia DX:Anemia Anticoagulated DX:Anticoagulate d Nodular goiter DX:Nodular goite r Family History Medical History Relation Name Comments Breast cancer Aunt 1 Breast cancer Aunt 2 Hyperlipidemia Brother Thyroid Disor tyler Other: Atrial Fibrillation Father C AD Breast cancer Father's side Aunt Hypertension Mother Cholesterol Lev el, CVA- age 82 Breast cancer Mother's side Aunt Relation Name Status Comments Aunt 1 Aunt 2 Brother Alive 2 Father Father's side Mother Mother's side Social History Tobacco Use Types Packs/Day Years Used Date Smoking Tobacco: Never Smokeless Tobacco: Never Alcohol Use Standard Drinks/Week Comments Yes 0 (1 standard drink = 0.6 oz pur e alcohol) Comments Unknown Sex and Gender Information Value Date Recorded Sex Assigned at Not on file Legal Sex Female 12:26 AM EST Gender Identity Not on file Sexual Orientation Not on file Obstetrics History Last Filed Vital Signs Vital Sign Reading Time Taken Comments Blood Pressure 140/56 08/23/2023 11:29 AM EST Pulse 91 08/23/2023 11:29 AM EST Temperature - - Respiratory Rate - - Oxygen Saturation - - Inhaled Oxygen Concentration - - Weight 78 kg (172 lb) 08/23/2023 11:29 AM EST Height 160 cm (5' 3 ) 07/20/2023 10:38 AM EST Body Mass Index 30.47 07/20/2023 10:38 AM EST Plan of Treatment Upcoming Encounters Date Type Department Care Team (Late st Contact Info) Description 05/13/2025 1:00 PM EST Ancillary Procedure [facility] [address] [facility] [address] [place] [address] Health Maintenance Due Date Last Done Comments Diabetes: Annual Foot Exam 1950 Diabetes: Annual Retina Eye Exam 1950 Falls Risk Assessment 06/05/2022 Medicare Annual Wellness Visit 06/05/2022 Osteoporosis Screening (Bone Density Screening) 06/05/2022 Social Influencers of Health Screening 06/05/2022 Diabetes: Annual Urine Albumin-Creatinine Ratio (uACR) 06/12/2022 09/29/2020 Diabetes: Blood Sugar Control Test (HGBA1C) 06/12/2022 06/24/2021 Diabetes: Annual GFR (Glomerular Filtration Rate) 08/27/2022 08/27/2021 Hypertension/CHF/CAD Annual BMP Blood Test 08/27/2022 08/27/2021 Depression Screening 06/27/2024 COVID-19 Vaccine (7 - Pfizer risk season) 2024 06/05/2024, 03/21/2023, 04/16/2022, Additional history exists Influenza Vaccine (#1) 2025 , 04/25/2023, 03/12/2022, Additional history exists Cholesterol Screening (Lipid Panel) 09/29/2025 09/29/2020 DTaP,Tdap,and Td Vaccines (4 - Td or Tdap) 03/11/2033 03/11/2023, 09/11/2012, 10/22/2004, Additional history exists Hepatitis A Vaccines Aged Out 03/02/2006 No long er eligible based on patient's age to complete this topic Zoster Vaccines Completed 01/14/2020, 05/27, 03/02/2018, Additional history exists Pneumococcal Vaccine: 50+ Years Completed 03/11/2023, 12/01/2015, 05/17/2014, Additional history exists RSV Immunization Adult Patients Completed 05/11/2023 HIB Vaccines Aged Out No longer eligi ble based on patient's age to complete this topic HPV Vaccines Aged Out No longer eligi ble based on patient's age to complete this topic Hepatitis B Vaccines Aged Out No long er eligible based on patient's age to complete this topic IPV Vaccines Aged Out No longer eligi ble based on patient's age to complete this topic MMR Vaccines Aged Out No longer eligi ble based on patient's age to complete this topic Meningococcal ACWY Vaccine Aged Out N o longer eligible based on patient's age to complete this topic Meningococcal B Vaccine Aged Out No l onger eligible based on patient's age to complete this topic RSV Immunization Patients Under 20 months Aged Out No longer eligible based on patient's age to complete this topic Varicella Vaccines Aged Out No longer eligible based on patient's age to complete this topic Medical Devices Implanted Type Area Oxygraph Operator Device Identifier Shelf Expiration Date Model / Serial / Lot Le 2272 Assurity Mri(Tm) [id number] Implanted: (Quantity not on file) Cardiac Pacemaker [facility] [employer] 2272 ASSURITY MRI(TM) / [id number] / Procedures Procedure Name Priority Date/Time Associated Diagnosis Comments ANNUAL BMP BLOOD TEST Routine 08/27/2021 HEMOGLOBIN A1C Routine 06/24/2021 URINE ALBUMIN CREATININE RATIO Routine 09/29/2020 LIPID PANEL Routine 09/29/2020 from Last 3 Months or Most Recently Relevant to Health Maintenance Results * Annual BMP Blood Test (08/27/2021) [facility] Annual BMP Blood Test abstracted [facility] Provider MD HEALTH MAINTENANCE Final Result * (ABNORMAL) Hemoglobin A1c (06/24/2021) [facility] Hemoglobin A1C 7.0(A) <=6.5 % Blood Venous blood specimen / Unknown [facility] Provider LAB BLOOD ORDERABLES Madison l Result * Urine Albumin Creatinine Ratio (09/29/2020) [facility] Urine Albumin Creatinine Ratio abstracted [facility] Provider HEALTH MAINTENANCE Final Result * (ABNORMAL) Lipid panel (09/29/2020) Pathologist [facility] LDL/HDL Ratio 4 0 - 4 Triglycerides 305(A) 0 - 150 mg/dL Cholesterol 158 0 - 200 mg/dL HDL 36(A) >=40 mg/dL LDL Cholesterol 61 0 - 100 mg/dL Blood Venous blood specimen / Unknown Historical Provider LAB BLOOD ORDERABLES Madison l Result from Last 3 Months or Most Recently Relevant to Health Maintenance Insurance MEDICARE [facility] Care Teams Principal Java Software Engineer Relationship Specialty Start Date End Date Terry Rivera MD [id number] [place] [address] PCP - General Internal Medicine 05/07/24
--- NOTE | 2025-01-15 12:38 | MHC.AU.HA3 ---
Hearing Instrument Follow-Up- Binaural Date of Visit: 01/15/25 Right Ear: Jarrett, Model, Color, Serial Number: Vivek Rutherford [id number] SN: [id number] Color: Silver Page Needle Punch Operator Repair Warranty: 07/26/2025 Needle Punch Operator Loss and Damage Warranty: 07/26/2025 [facility] Service Plan: OPTED OUT Battery Size: Rechargeable Team Lead/Slim Tube: 2M with retention tail Earmold/Dome/CShell/SlimTip:Small power dome Type of Wax Guard: CeruShield Dispensed By: [facility] Date of Fittin05/26/2022 Left Ear: Jarrett, Model, Color, Serial Number: Vivek Franko [id number] SN: [id number] Color: Silver Page Needle Punch Operator Repair Warranty: 07/26/2025 Needle Punch Operator Loss and Damage Warranty: 07/26/2025 [facility] Service Plan: OPTED OUT Battery Size: Rechargeable Team Lead/Slim Tube: 2M with retention tail Earmold/Dome/CShell/SlimTip: Small power dome Type of Wax Guard: CeruShield Dispensed By: [facility] Date of Fittin05/26/2022 Follow-Up Summary: Hearing aids dropped off, c/o weak . Cleaned hearing aids, brushed debris from microphones; replaced wax guards, domes, and tails. Listening check positive. Recommendations: Recommendations: If complaints of weak hearing aids persists new audiogram would be needed as this has not been done since 2021. Diagnosis Code(s): Primary Diagnosis: H90.3 Bilateral Sensorineural Hearing Loss Signature: Provider: Jonathan Webster, [facility]
== END 2025-01-15 07:58 | disposition home or self-care (01) ==
LOC: HO.HAP 07:57
PROVIDERS: Visit Provider Internal Medicine
DX: Z13.89 Encounter for screening for other disorder (principal)

== ENCOUNTER 2025-01-16 09:05 | Outpatient (REF) | payer SELFPAY ==
--- OUTSIDE RECORDS SUMMARY | 2025-01-16 09:34 | XMS_ITS | Clinical Summary ---
Author Organization [address] [place] [address] [place] [phone] Phone Care Team Providers Care Poultry Trimmer Name Role Phone Terry Rivera MD Primary Care Provider [phone] Allergies Active Allergy Reactions Criticality Noted Date [...] Pericarditis 03/30/2024 Sick sinus syndrome (CMS/HCC V24, [facility] V28) 1 Asthma 03/30/2024 CKD (chronic kidney disease) stage 3, GFR 30-59 ml/min ([facility] V24, [facility] V28) 03/30/2024 Diabetic renal disease ([facility] V24, [facility] V28 ) 03/30/2024 Lymphedema of left arm 03/30/2024 Breast cancer metastasized t o lung ([facility] V24, [facility] V28) 03/30/2024 Urinary incontinence 03/30/2024 Pulmonary nodule 03/30/2024 Hiatal hernia 03/30/2024 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 ([facility] V24, [facility] V28) 03/30/2024 Esophagitis 03/30/2024 (HFpEF) heart failure with p reserved ejection fraction ([facility] V24, [facility] V28) 03/30/2024 Obstructive sleep apnea hypopnea, mild Dry eye syndrome 03/30/2024 Age-related macular degeneration 03/30/2024 Cardiac chest pain 03/30/2024 Atrial fibrillation ([facility] V24, [facility] V28) 1 Type II or unspecified type diabetes mellitus with neurological manifestations, not stated as uncontrolled(250.60) ([facility] V24, [facility] V28) 03/30/2024 Encounters Date Type Department Care Team Description 10/29/2024 Telephone [facility] - [facility] [address] [facility] [address] [place] [address] Diana Ar[place], [place] Hospice 10/24/2024 Telephone [facility] - [address] [place] [address] Valdemar Benz MD from Last [...] History Surgery Date Site/Laterality Comments CHOLECYSTECTOMY PROCEDURE: [place] LAPAROSCOPY SURG CHOLECYSTECTOMY OTHER SURGICAL HISTORY PROCEDURE: MASTECTOMY -BREAST PROSTHESIS; COMMENT: breast ca1 BREAST SURGERY PROCEDURE: [place] UNLISTED PROCEDURE BREAST COLONOSCOPY 06/10/2011 PROCEDURE: HISTORICAL COLONOSCOPY; COMMENT: tics and hemorrhoids; would not repat ESOPHAGOGASTRODUODENOSCOPY 03/25/2016 PROCEDURE: WA ESOPHAGOGASTRODUODENOSCOPY TRANSORAL DIAGNOSTIC; COMMENT: blotchy, raised erythema [...] PROCEDURE: HISTORICAL PACEMAKER OTHER SURGICAL HISTORY PROCEDURE: [place] ANES CARDIAC ELECTROPHYSIOL STDY W/RF ABLATION OTHER SURGICAL HISTORY PROCEDURE: [place] CARDIOVERSION ELECTIVE ARRHYTHMIA EXTERNAL Medical History Medical History Date Comments Thyroid nodule DX:Thyroid nodul e Cataract 01/08/2019 DX:Cataract; COM MENT: Extraction w/ IOL Type 2 diabetes mellitus wit h cataract ([facility]/HCC V24, [facility] V28) 01/08/2019 DX:Type 2 diabetes mellitus with cataract (HCC) Type 2 diabetes mellitus wit h renal manifestations (CMS/[facility] V24, [facility] V28) 01/08/2019 DX:Type 2 diabetes mellitus with renal manifestations (HCC) Asthma 03/17/2017 DX:Asthma; COMME NT: Possible, mild, PFTs 03/13 Atrial fibrillation ([facility] V24, [facility] V28) 04/07/2012 DX:Atrial fibrillation (HCC) ; COMMENT: S/p pacer 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, left ([facility] V24, [facility] V28) 10/04/2012 DX:Breast cancer metastasize d to axillary lymph node, left (HCC); COMMENT: BRCA negative; recurrent 02/11 Breast cancer metastasized t o lung ([facility] V24, [facility] V28) 03/02/2018 DX:Breast cancer metastasiz ed to lung (HCC) CKD (chronic kidney disease) stage 3, GFR 30-59 ml/min ([facility] V24, [facility] V28) 10/29/2017 DX:CKD (chronic kidney disea se) stage 3, GFR 30-59 ml/min ([facility]) Diabetic renal disease ([facility]/ [facility] V24, [facility] V28) 10/29/2017 DX:Diabetic renal disease (H CC) [...] Following pacemaker placement 02/10 Sick sinus syndrome ([facility] V24, [facility] V28) 03/04/2017 DX:Sick sinus syndrome (HCC) Type 2 diabetes mellitus wit h neurological manifestations, controlled ([facility] V24, [facility] V28) 05/20/2014 DX:Type 2 diabet es mellitus with neurological manifestations, controlled ([facility]) Urinary incontinence 06/03/2018 DX:Urinary incontinence Hypertension 10/07/2005 DX:Hypertension Ankle fracture DX:Ankle fractur e COPD (chronic obstructive pu lmonary disease) ([facility] V24, [facility] V28) DX:COPD (chronic o bstructive pulmonary disease) (HCC) Diabetes mellitus ([facility] V 24, [facility] V28) DX:Diabetes mellitus (HCC) GERD (gastroesophageal reflu [...] Description 05/13/2025 1:00 PM EST Ancillary Procedure [facility] - [facility] [address] [facility] [address] [place] [address] Health Maintenance Due Date Last [...] this topic Medical Devices Implanted Type Area Hazardous Substances Scientist Device Identifier Shelf Expiration Date Model / Serial / Lot Le 2272 Assurity Mri(Tm) [id number] Implanted: (Quantity not on file) Cardiac Pacemaker [facility] [employer] 2272 ASSURITY MRI(TM) / [id number] / Procedures Procedure Name Priority Date/Time Associated Diagnosis Comments ANNUAL BMP BLOOD TEST Routine 08/27/2021 HEMOGLOBIN A1C Routine 06/24/2021 URINE ALBUMIN CREATININE RATIO Routine 09/29/2020 LIPID PANEL Routine 09/29/2020 from Last 3 Months or Most Recently Relevant to Health Maintenance Results * Annual BMP Blood Test (08/27/2021) Pathologist formerly [facility] Annual BMP Blood Test abstracted [facility] Provider MD HEALTH MAINTENANCE Final Result * (ABNORMAL) Hemoglobin A1c (06/24/2021) [facility] Hemoglobin A1C 7.0(A) <=6.5 % Blood Venous blood specimen / Unknown [facility] Provider LAB BLOOD ORDERABLES [place] l Result * Urine Albumin Creatinine Ratio (09/29/2020) Pathologist formerly [facility] Urine Albumin Creatinine Ratio abstracted [facility] Provider HEALTH MAINTENANCE Final Result * (ABNORMAL) Lipid panel (09/29/2020) Pathologist [facility] LDL/HDL Ratio 4 0 - 4 Triglycerides 305(A) 0 - 150 mg/dL Cholesterol 158 0 - 200 mg/dL HDL 36(A) >=40 mg/dL LDL Cholesterol 61 0 - 100 mg/dL Blood Venous blood specimen / Unknown Historical Provider LAB BLOOD ORDERABLES Madison l Result from Last 3 Months or Most Recently Relevant to Health Maintenance Insurance MEDICARE [facility] Care Teams Poultry Trimmer Relationship Specialty Start Date End Date Terry Rivera MD [address] [place] [address] PCP - General Internal Medicine 05/07/24
--- OUTSIDE RECORDS SUMMARY | 2025-01-16 09:34 | XMS_ITS ---
Author Name [place] Organization Unknown Care Team Organization Name Specialty Phone Email Start Date End Da te [facility] Termed, PROVIDER Primary Care 05/04/202201/25
--- OUTSIDE RECORDS SUMMARY | 2025-01-16 09:34 | XMS_ITS | Clinical Summary ---
Author Organization [facility], Address [address] [place] [address] Phone Care Team Providers Care Retail Store Clerk Name Role Phone Terry Rivera MD Primary Care Provider [phone] Allergies Active Allergy Reactions Criticality Noted Date [...] day 7 Active Lancets (OneTouch Delica Plus [id number]) misc TEST DAILY 1 Active letrozole (FEMARA) [...] Only [facility], [address] [place] [address] Terry Munoz MD Stage 3 chronic [...] Visit [facility] [place] [facility], [address] [phone] Terry Munoz MD [address] [place] [phone] Health Maintenance Due Date Last Done Comments [...] patient's age to complete this topic Insurance [facility] Member Subscriber Plan / Payer (Ef fective 2020-Present) Name:Melody Landa Relation to Subscriber:Self Name:Melody Landa Payer ID:Not on file Type:Not on file Address: [address] [phone] Medicare Care Teams Retail Store Clerk Relationship Specialty Start Date End Date Terry Rivera MD [facility] [place] [address] PCP - General Internal Medicine 06/28/24
== END 2025-01-16 09:06 | disposition home or self-care (01) ==
LOC: HO.HAP 09:05
PROVIDERS: Visit Provider Internal Medicine
DX: Z46.1 Encounter for fitting and adjustment of hearing aid (principal); H90.3 Sensorineural hearing loss, bilateral
CPT/HCPCS: 92593